=== PATIENT | male | born 1995 | race Two or more races ===

== ENCOUNTER 2017-09-15 07:04 | Emergency (ER) | payer OTHER ==
[2017-09-15 07:12] VITALS: BP 149/88
[2017-09-15] MEDS ORDERED: DIPH/PERTUSS(ACELL)/TETANUS VAC/PF 0.5 ML SYR (>=10YO) IM ONE (07:41)
[2017-09-15] MEDS ORDERED: ACETAMINOPHEN 325 MG TABLET PO ONE (07:41)
[2017-09-15] MEDS ORDERED: CIPROFLOXACIN HCL 500 MG TABLET PO ONE (07:41)
--- NOTE | 2017-09-15 07:47 | ER Document Report ---
HPI - HPI Pain Level: 1 Context: Patient is a 21-year-old male presents emergency department complaining of head wound. Patient states that he was at a friend's house last evening when he dove into a shallow freshwater [place] and cut open the top of his head. Denies any loss of consciousness, headache. Denies any vision changes. Patient states that his tetanus is up-to-date from his 12-year-old vaccine but has not been updated within the past 5 years. Patient is active duty . Past Medical History - Social History Smoking Status: Unknown if Ever Smoked Drug Abuse: None Family History: Reviewed & Not Pertinent Patient has suicidal ideation: No Patient has homicidal ideation: No Renal/ Medical History: Denies: Hx Peritoneal Dialysis Vertical Provider Document - CONSTITUTIONAL Agree With Documented VS: Yes Notes: PHYSICAL EXAM GENERAL: Alert, interacts well. HEAD: Normocephalic, atraumatic. EYES: Pupils equal, round, and reactive to light. Extraocular movements intact. ENT: Oral mucosa moist, tongue midline. NECK: Full range of motion. Supple. Trachea midline. NEUROLOGICAL: Alert and oriented x4. Normal speech. PSYCH: Normal affect, normal mood. SKIN: Warm, dry, normal turgor. 3cm superficial laceration on the right top part of his calp without full dermal involvement, no active bleeding Course - Re-evaluation Re-evalutation: 09/15/17 07:46 Patient is a 21-year-old male is hemodynamic stable, no acute distress afebrile. Patient with superficial head injury without associated LOC. Presentation of head trauma in an otherwise well-appearing patient. No focal neurologic deficits on exam, no evidence of basilar skull fracture on exam without evidence of hemotympanum, raccoon eyes, or periauricular hematoma. No papilledema. Patient is not on anticoagulation. GCS is 15. No loss of consciousness. No episodes of vomiting. Patient is therefore negative via [place] head CT criteria and CT imaging will not be obtained at this time. Reviewed wound care and tetanus status updated. - Vital Signs Vital signs: Temp Pulse Resp BP Pulse Ox 98.5 F 83 18 149/88 H 99 09/15/17 07:09 09/15/17 07:09 09/15/17 07:09 09/15/17 07:09 09/15/17 07:09 Discharge - Discharge Clinical Impression: Scalp wound Qualifiers: Encounter type: initial encounter Open wound type: laceration Foreign body presence: without foreign body Qualified Code(s): S01.01XA - Laceration without foreign body of scalp, initial encounter Condition: Good Disposition: HOME, SELF-CARE Additional Instructions: NON-SUTURED LACERATION: Your laceration did not require suturing. Some lacerations cannot be sutured because of increased infection risk, while others simply don't need stitches because they are shallow or very short. Your injury should be protected while it heals. Usually complete healing takes 10 to 14 days. Keep the dressing clean and dry, and change it every day. If you notice increasing pain, redness, swelling, drainage, or tender lumps in the armpit or groin above the injury, infection may be present. You should call the doctor at once. SOAP CLEANSING: Gently wash the wound daily using a mild soap (like Ivory, Phisoderm, Neutrogena). Use warm water, rubbing gently until all debris, ooze, and crusting have been washed from the wound. Allow to dry briefly (about 10 minutes) after cleaning. Repeat this cleansing at least three times a day for the first two days and then once or twice a day. ANTIBIOTIC OINTMENT PROTECTION: Your wounds are such that dressing them is not practical or optional. After cleansing, you should apply a thin coating of antibiotic ointment ( Bacitracin, not Neosporin) to the wounds at least three times daily. This lessens infection risk, and may decrease the amount of scarring. Use a q-tip or dull butter knife, not your finger, to apply this ointment. Any debris or ooze which builds up in the ointment should be gently rubbed off with a sterile gauze pad. Harder crusting may need to be gently scrubbed off with a clean wash cloth with soap and warm water, perhaps applying a warm, wet wash cloth to the wound for ten minutes first. Development of redness, severe itching, or blistering may mean allergy to the ointment. See the doctor. TETANUS IMMUNIZATION GIVEN: You have been given an immunization against tetanus. Please record this in your records. In general, a booster is needed only once every 10 years. The tetanus shot protects against tetanus or "lockjaw," which is a complication of certain wound infections (the tetanus shot cannot protect against the actual infection). The immunization site may become warm and red due to local reaction. If this occurs, apply warm compresses and take aspirin or ibuprofen to reduce inflammation and discomfort. Return for evaluation if the reaction becomes severe. PROPHYLACTIC ANTIBIOTIC: The antibiotics which have been prescribed are designed to decrease the risk of infection. Only certain types of wounds benefit from this -- the typical cut, scrape, or burn DOES NOT require antibiotics. Of course, infection can still occur despite the use of prophylactic antibiotics. Your wound will heal with less chance of an infectious complication if you take the medication as directed. The most important dose is the FIRST dose, so don't delay filling the prescription! FOLLOW-UP CARE: If you have been referred to another physician for follow-up care, call that physicians office for an appointment as you were instructed. If you experience a significant change in your laceration, or if you are concerned there may be an infection (swelling, redness, drainage, increasing tenderness, red streaks, tender lumps in the armpit or groin above the laceration, or fever) , return to the Emergency Department immediately re-evaluation. Prescriptions: Ciprofloxacin HCl [Cipro 500 mg Tablet] 500 mg PO BID #20 tablet Forms: Elevated Blood Pressure
== END 2017-09-15 08:12 | disposition home or self-care (01) ==
LOC: ER 07:04
DX: S01.01XA Laceration without foreign body of scalp, initial encounter (principal); X58.XXXA Exposure to other specified factors, initial encounter; Z23 Encounter for immunization
CPT/HCPCS: 90715; 99283